=== PATIENT | female | born 1940 | race Caucasian/White ===

== ENCOUNTER → 2019-08-16 11:52 | Outpatient (BNVA) | payer MEDICARE, SELFPAY | PROVIDERS: Family Provider Family Medicine; PCP Family Medicine; Visit Provider Family Medicine | DX: J02.9 Acute pharyngitis, unspecified (principal); R92.8 Other abnormal and inconclusive findings on diagnostic imaging of breast; E11.9 Type 2 diabetes mellitus without complications | CPT/HCPCS: 87081; 87804; 87880 ==

== ENCOUNTER → 2019-09-06 11:17 | Outpatient (BNVA) | payer MEDICARE, SELFPAY | PROVIDERS: Family Provider Family Medicine; PCP Family Medicine; Visit Provider Nurse Practitioner Family | DX: J02.9 Acute pharyngitis, unspecified (principal) | CPT/HCPCS: 87081; 87880 ==

== ENCOUNTER 2019-10-31 07:33 | Day surgery (SDC) | payer MEDICARE, SELFPAY ==
[2019-10-28 16:34] VITALS: BMI 28.9
[2019-10-31 07:55] VITALS: BP 149/85; PULSE 108; RESP 18; RESP 187; TEMP 36.3; O2SAT 98
[2019-10-31] MEDS: sodium chloride 0.9% 1,000 ML 30 ML IV (08:05)
--- NOTE | 2019-10-31 08:12 | ANES.PREANE2 ---
Pre-Anesthetic Assessment Pre-Anesthetic Assessment: Height/Weight: Height 1.57 m Weight 71.668 kg Temp Pulse Resp BP Pulse Ox 97.4 F L 108 H 187 H 149/85 98 10/31/19 07:55 10/31/19 07:55 10/31/19 07:55 10/31/19 07:55 10/31/19 07:55 Preop Diagnosis: his polyps Proposed Procedure: Operation Date: 10/31/19 09:05 Proposed Procedures p Colonoscopy G0104 Z12.11(Not Applicable) - Ganga Mackey MD Familial anesthetic complications: none Was Beta Hung taken within 24 hours: N/A Last intake: Intake Last Liquid Date 10/30/19 Last Liquid Time 19:00 Last Solid Date 10/29/19 Last Solid Time 18:30 Social: Social History: No alcohol and No tobacco Exam: Pre-Anes Outpt Exam: alert, oriented x 3, clear to auscultation bilaterally and regular rate & rhythm Airway: Cervical ROM: WNL MP: 2 Dentition: False Pulmonary: Pulmonary: None reported CV/HEM: CV/HEM: HTN : : None reported Hepatic: Hepatic: None reported GI: Comments: feels like she's having some GERD today, though she doesn't normally have gerd. Will give bicitra Metabolic: Metabolic: Thyroid Musc/skel: Musc/skel: None reported Neuropsych: Neuropsych: None reported Anesthetic Plan: ASA status: 2 Anesthesia: MAC Risk of > 500 ml blood loss (7ml/kg in children): No Meds/Allergies Current Medications: Current Medications Generic Name Dose Route Start Last Admin Trade Name Freq PRN Reason Stop Dose Admin Sodium Chloride 1,000 mls @ 30 ml s/hr 10/31/19 07:45 10/31/19 08:05 Sodium Chloride 0.9% IV 11/01/19 07:44 30 mls/hr .Q24H DERRICK Administration PFSH Anesthesia PFSH: Social History Smoking and tobacco status: never smoked Alcohol intake: never Data Anesthesia Cardiac Studies: No Data to Display
[2019-10-31] MEDS: citric acid-sodium citrate 30 mL UDC PO (08:26)
--- NOTE | 2019-10-31 08:52 | W.PM.OPSUD ---
Surgery/Procedure H&P Update DATE OF PROCEDURE: October 31, 2019 DATE H&P PERFORMED: 09/20/19 PREOP DIAGNOSIS: his polyps PLANNED PROCEDURE: Operation Date: 10/31/19 09:05 Proposed Procedures p Colonoscopy G0104 Z12.11(Not Applicable) - Ganga Mackey MD
[2019-10-31 09:38] VITALS: BP 149/79; PULSE 84; RESP 16; TEMP 36.1; O2SAT 92
[2019-10-31 10:03] VITALS: BP 150/80; PULSE 85; RESP 18; O2SAT 96
--- NOTE | 2019-10-31 10:22 | ANE.PACU2 ---
 Inpatient post-anesthesia follow up: Airway intact: Yes Vital signs: Temperature 97.0 F Pulse Rate 85 Respiratory Rate 18 Blood Pressure 150/80 Pulse Oximetry 96 Oxygen Delivery Me thod Room Air Oxygen Flow Rate 3 Fraction of Inspir ed Oxygen Hydration adequate: Yes Nausea and vomiting: No Pain level: 1 Mental status: Baseline
== END 2019-10-31 10:12 | disposition home or self-care (01) ==
PROVIDERS: Family Provider Family Medicine; PCP Family Medicine; Visit Provider Internal Medicine
PROC: 0DJD8ZZ Inspection of Lower Intestinal Tract, Via Natural or Artificial Opening Endoscopic (ICD-10-PCS; CPT 45378; principal; 2019-10-31 09:00)
DX: Z12.11 Encounter for screening for malignant neoplasm of colon (principal); Z86.010 Personal history of colon polyps; I10 Essential (primary) hypertension; K21.9 Gastro-esophageal reflux disease without esophagitis
CPT/HCPCS: 45378; 12345; J2001; J2704; J7030

== ENCOUNTER 2019-11-03 11:36 | Outpatient (CLI) | payer MEDICARE, SELFPAY ==
--- NOTE | 2019-11-03 12:00 | MM_ITS ---
WS: [id number] BILATERAL DIGITAL SCREENING MAMMOGRAPHY WITH CAD CLINICAL INFORMATION: screening HISTORY: Screening mammogram. No current complaints. COMPARISON: June 04, 2018 TECHNIQUE: Bilateral CC and MLO views. FINDINGS: The breasts are composed of heterogeneous fibroglandular density tissue, which can limit the detectio n of small underlying mass lesions. No suspicious mass, asymmetry, calcifications, or architectural d istortion. No evidence of malignancy. Vascular calcification. [facility] calcifications. MM/[id number] IMPRESSION: BI-RADS: 2-Benign FOLLOW UP: 1 Year Follow-up Recommend return to annual screening mammography.
== END 2019-11-03 11:37 | disposition home or self-care (01) ==
PROVIDERS: PCP Family Medicine; Visit Provider Family Medicine
DX: Z12.31 Encounter for screening mammogram for malignant neoplasm of breast (principal)
CPT/HCPCS: 77067

== ENCOUNTER → 2019-11-30 07:48 | Outpatient (BNVA) | payer MEDICARE, SELFPAY | PROVIDERS: PCP Family Medicine; Visit Provider Family Medicine | DX: E03.9 Hypothyroidism, unspecified (principal); E78.2 Mixed hyperlipidemia | CPT/HCPCS: 80053; 80061; 84439; 84443 ==

== ENCOUNTER → 2020-05-07 10:52 | Outpatient (BNVA) | payer MEDICARE, SELFPAY | PROVIDERS: PCP Family Medicine; Visit Provider Family Medicine | DX: R82.998 Other abnormal findings in urine (principal); N30.01 Acute cystitis with hematuria | CPT/HCPCS: 80053; 81003 ==

== ENCOUNTER → 2020-07-10 14:07 | Outpatient (BNVA) | payer MEDICARE, SELFPAY | PROVIDERS: PCP Family Medicine; Visit Provider Family Medicine | DX: N30.01 Acute cystitis with hematuria (principal); R39.9 Unspecified symptoms and signs involving the genitourinary system | CPT/HCPCS: 81003 ==

== ENCOUNTER → 2020-11-14 15:53 | Outpatient (BNVA) | payer MEDICARE, SELFPAY | PROVIDERS: PCP Family Medicine; Visit Provider Family Medicine | DX: E03.9 Hypothyroidism, unspecified (principal); E78.2 Mixed hyperlipidemia | CPT/HCPCS: 80053; 80061; 84439; 84443; 85025 ==

== ENCOUNTER 2020-12-17 14:08 | Outpatient (CLI) | payer MEDICARE, SELFPAY ==
--- NOTE | 2020-12-17 14:24 | MM_ITS ---
WS: [id number] BILATERAL SCREENING DIGITAL MAMMOGRAM WITH CAD HISTORY: SCREENING COMPARISON: 11/03/2019, 06/04/2018 Bilateral CC and MLO views submitted. Computer aided detection analyzed. Breast composition: There are scattered areas of fibroglandular density. No suspicious masses, microc alcifications or architectural distortion. Benign calcifications in each breast. MM/[id number] IMPRESSION: BI-RADS: 2-Benign FOLLOW UP: 1 Year Follow-up
== END 2020-12-17 14:09 | disposition home or self-care (01) ==
PROVIDERS: PCP Family Medicine; Visit Provider Family Medicine
DX: Z12.31 Encounter for screening mammogram for malignant neoplasm of breast (principal)
CPT/HCPCS: 77067

== ENCOUNTER → 2021-03-27 09:49 | Outpatient (BNVA) | payer MEDICARE, SELFPAY | PROVIDERS: PCP Family Medicine; Visit Provider Nurse Practitioner Family | DX: R30.0 Dysuria (principal) | CPT/HCPCS: 81000 ==

== ENCOUNTER → 2021-04-15 08:01 | Outpatient (BNVA) | payer MEDICARE, SELFPAY | PROVIDERS: PCP Family Medicine; Visit Provider Nurse Practitioner Family | DX: E03.9 Hypothyroidism, unspecified (principal) | CPT/HCPCS: 84443 ==

== ENCOUNTER 2021-06-06 15:11 | Outpatient (CLI) | payer MEDICARE, SELFPAY ==
--- NOTE | 2021-06-06 15:45 | US_ITS ---
WS: [id number] THYROID ULTRASOUND HISTORY: E03.9 - Hypothyroidism, unspecified COMPARISON: None available. Right lobe: 1.4 cm x 1.5 cm x 3.0 cm (w x ap x l). Volume: 3.2 cm3. Small lobulated heterogeneous thyroid. No discrete nodule. No increased vascularity. Left lobe: 1.0 cm x 1.2 cm x 3.2 cm (w x ap x l). Volume: 1.9 cm3. Small atrophic thyroid with ill-defined margins. No discrete nodule. No increased vascularity. Isthmus: 0.2 cm. US/US thyroid [id number] IMPRESSION: Bilateral thyroid atrophy with variable echogenicity. No discrete nodules.
== END 2021-06-06 15:12 | disposition home or self-care (01) ==
LOC: RAD 15:12
PROVIDERS: PCP Family Medicine; Visit Provider Nurse Practitioner Family
DX: E03.9 Hypothyroidism, unspecified (principal); E04.9 Nontoxic goiter, unspecified
CPT/HCPCS: 76536

== ENCOUNTER → 2021-06-13 08:59 | Outpatient (BNVA) | payer MEDICARE, SELFPAY | PROVIDERS: PCP Family Medicine; Visit Provider Nurse Practitioner Family | DX: E03.9 Hypothyroidism, unspecified (principal) | CPT/HCPCS: 84443 ==

== ENCOUNTER → 2021-06-26 13:41 | Outpatient (BNVA) | payer MEDICARE, SELFPAY | PROVIDERS: PCP Family Medicine; Referring Provider Nurse Practitioner Family; Visit Provider Internal Medicine | DX: E03.9 Hypothyroidism, unspecified (principal); R00.0 Tachycardia, unspecified; R79.89 Other specified abnormal findings of blood chemistry; R00.2 Palpitations | CPT/HCPCS: 99204 ==

== ENCOUNTER → 2021-07-25 09:20 | Outpatient (BNVA) | payer MEDICARE, SELFPAY | PROVIDERS: PCP Family Medicine; Visit Provider Nurse Practitioner Family | DX: E03.9 Hypothyroidism, unspecified (principal); R00.0 Tachycardia, unspecified; R79.89 Other specified abnormal findings of blood chemistry; E05.90 Thyrotoxicosis, unspecified without thyrotoxic crisis or storm | CPT/HCPCS: 84439; 84443 ==

== ENCOUNTER → 2021-09-19 10:36 | Outpatient (BNVA) | payer MEDICARE, SELFPAY | PROVIDERS: PCP Family Medicine; Visit Provider Nurse Practitioner Family | DX: E03.9 Hypothyroidism, unspecified (principal); R00.0 Tachycardia, unspecified; R79.89 Other specified abnormal findings of blood chemistry | CPT/HCPCS: 84439; 84443 ==